=== PATIENT | female | born 1955 | race Caucasian/White ===

== ENCOUNTER → 2016-10-07 | Outpatient (CLI) | payer OTHER ==
--- NOTE | 2016-10-07 09:40 | DX ---
Left Rib Series and PA Upright View of the Chest, Three Views Total October 07, 2016, 9:03 a.m. Clinical History: 61-year-old female who fell onto some weights on October 04, 2016, and complains of left-sided posterior rib pain. ICD-10 Diagnostic Code: S22.39XA. Comparison Study: None. Findings: A metallic BB has been placed over the point of maximal tenderness along the left inferior costal region. There is no rib fracture appreciated. There is no lytic or blastic lesion or periostit is. Bilateral breast implants result in some increased attenuation over the lower lung zones. There i s no focal infiltrate, pleural effusion, or peripheral interstitial edema. On the 3rd image acquired, there is some diskoid subsegmental atelectasis seen at the medial left lung base. The cardiomediasti nal silhouette is normal. There is minimal apical pleural thickening. Impression: 1. There is no rib fracture appreciated, and there is no evidence of pneumothorax. 2. Minimal diskoid subsegmental atelectasis involving the medial left lower lobe.
== END ==
LOC: CLAB 08:59
PROVIDERS: ATTEND Internal Medicine
DX: R07.81 Pleurodynia (principal)
CPT/HCPCS: 71101-PO

== ENCOUNTER → 2018-04-10 | Outpatient (CLI) | payer OTHER | LOC: BRMIMAGING 13:22 | PROVIDERS: ATTEND Internal Medicine Endocrinology, Diabetes & Metabolism | DX: Z13.820 Encounter for screening for osteoporosis (principal); M81.0 Age-related osteoporosis without current pathological fracture; E21.0 Primary hyperparathyroidism ==

== ENCOUNTER → 2018-09-16 | Outpatient (CLI) | payer OTHER | LOC: FIMAGING 08:32 | PROVIDERS: ATTEND Internal Medicine | DX: M48.54XA Collapsed vertebra, not elsewhere classified, thoracic region, initial encounter for fracture (principal) ==